=== PATIENT | female | born 1980 | race Caucasian/White ===

== ENCOUNTER 2018-12-13 05:53 | Day surgery (SDC) | payer OTHER ==
[~2018-12-13] VITALS: Ht 152.4 cm; Wt 64.3 kg
[2018-12-13 06:31] VITALS: BP 106/72; PULSE 73; RESP 19
[2018-12-13] MEDS ORDERED: NO MEDICATIONS (06:46)
[2018-12-13 06:47] VITALS: Ht 152.4 cm; Wt 64.3 kg
[2018-12-13] MEDS ORDERED: FENTAnyl 50 MCG/ML VIAL ONE (08:12)
[2018-12-13] MEDS ORDERED: MIDAZOLAM 1 MG/ML 2 ML INJ ONE (08:12)
[2018-12-13 08:28] VITALS: BP 99/61; PULSE 74; RESP 18
--- NOTE | 2018-12-13 11:39 | CONS ---
DATE OF ADMISSION: 12/13/2018 DATE OF CONSULTATION: PATIENT NAME: ROLAND BROWN TYPE OF CONSULTATION: Preoperative gastroenterology. Dear Dr. Ng, I thank you very much for this kind referral. HISTORY OF PRESENT ILLNESS: Ms. Brown is a 38-year-old female patient who has been referred to [facility] montero for further evaluation of upper abdominal pain and chronic heartburn, not responding to therapy. N o past history of peptic ulcer disease. Not on nonsteroidal anti-inflammatory agents. Appetite is s omewhat poor. She states that she has been losing weight. No history of gallstones or liver disease . No change in the bowel habit or rectal bleeding. Not a hypertensive or diabetic. No heart diseas e, lung problem or kidney disease. The patient is status post sections. She has IUD to pre vent . SOCIAL HISTORY: Nonsmoker. No alcohol abuse. FAMILY HISTORY: No family history of gastrointestinal tract neoplasm. ALLERGIES: No drug allergies. MEDICATIONS: None. PHYSICAL EXAMINATION: GENERAL: she is 5 feet tall and weighs 140 pounds. HEART: Normal heart sounds. LUNGS: Clear. ABDOMEN: Soft. The patient has weakness of the anterior abdominal muscles, but there is no definite hernia. Normal bowel sounds. NEUROLOGIC: Normal neurological exam. IMPRESSION: 1. Upper abdominal pain and chronic heartburn, not responding to therapy. 2. The patient also complains of loss of appetite and weight loss. 3. The patient has got weakness of the anterior abdominal muscles. 4. Status post section. 5. She has IUD to prevent . PLAN: Endoscopy for further evaluation. The procedure and possible complications are well explained to the patient. She understands and cons ents to the procedure. I thank you once again. With warmest personal regards, Dictated By: CHERYL PRADO/MARGE Conf#: [id number] DID#: [id number]
== END 2018-12-13 11:13 | disposition home or self-care (01) ==
LOC: GIL 05:53
PROVIDERS: ATTEND Internal Medicine Gastroenterology
DX: K29.50 Unspecified chronic gastritis without bleeding (principal); K44.9 Diaphragmatic hernia without obstruction or gangrene; K21.9 Gastro-esophageal reflux disease without esophagitis
CPT/HCPCS: 43239; 84703; 88305; 88312; J2250; J3010; Z7610